=== PATIENT | male | born 1955 | race Caucasian/White ===

== ENCOUNTER → 2018-10-27 13:42 | Outpatient (CLI) | payer BC | END | disposition home or self-care (01) | LOC: D.MRI 13:42 | PROVIDERS: ATTEND Family Medicine | DX: L08.9 Local infection of the skin and subcutaneous tissue, unspecified (principal) ==

== ENCOUNTER 2018-11-06 05:16 | Day surgery (SDC) | payer BC ==
[~2018-11-06] VITALS: Ht 182.9 cm; Wt 86.6 kg
[~2018-11-06 05:16] MED LIST: GLIMEPIRIDE4 MG PO; LEVEMIR IN100 UNITS/ SC; METFORMIN HCL500 M1 PO; ZOCOR20 MG PO
[2018-11-06 05:42] LABS: BASOPHILS 0.7 % (0-2); EOSINOPHILS 4.9 % (0-7); HEMATOCRIT 47.9 % (42.0-54.0); HEMOGLOBIN 16.8 g/dL (13.5-17.5); IMMATURE GRANULOCYTES 0.2 % (0-5); LYMPHOCYTES 42.8 % (15-50); MCH 30.7 pg (26.0-34.0); MCHC 35.1 g/dL (31.0-37.0); MCV 87.4 fL (80.0-100.0); MEAN PLATELET VOLUME 9.3 fL (7.4-10.4); MONOCYTES 7.8 % (2-11); NEUTROPHILS 43.6 % (40-80); PLATELET COUNT 205 10x3/uL (130-400); RBC 5.48 10x6/uL (4.20-6.10); RDW 13.6 % (11.5-14.5); WBC 5.8 10x3/uL (4.8-10.8)
[2018-11-06 06:00] LABS: ANION GAP 11.9 mmol/L (8-16); CALCIUM 9.6 mg/dL (8.5-10.1); CARBON DIOXIDE 29.5 mmol/L (21.0-32.0); CREATININE - SERUM 1.2 mg/dL (0.6-1.3); POTASSIUM - SERUM 4.4 mmol/L (3.5-5.1)
[2018-11-06] MEDS ORDERED: BAYER CHEWABLE81 MG PO (06:36)
[2018-11-06 06:48] VITALS: BP 126/67; Ht 182.9 cm; Wt 86.6 kg
[2018-11-06 06:54] LABS: APPEARANCE CLEAR (CLEAR); BILIRUBIN NEGATIVE (NEGATIVE); COLOR YELLOW (YELLOW); GLUCOSE NEGATIVE (NEGATIVE); KETONE NEGATIVE (NEGATIVE); NITRITE NEGATIVE (NEGATIVE); PROTEIN NEGATIVE (NEGATIVE); UROBILINOGEN NORMAL (NORMAL)
[2018-11-06] MEDS ORDERED: HYDROCODON-ACE1 EAC7 PO (08:05)
--- NOTE | 2018-11-06 08:21 | NUR ---
0810 SMALL AMOUNT OF BRIGHT RED BLOOD ON KERLEX. AREA MARKED FOR OBSERVATION.
--- NOTE | 2018-11-06 08:50 | NUR ---
0840 MINIMAL BLOOD ON BANDAGE. GUAZE AND TAPE GIVEN TO PATIENT IN CASE OF FURTHER BLEEDING. IV DC'D. NO BLEEDING AT SITE. BANDAID APPLIED.
--- NOTE | 2018-11-06 09:30 | OP ---
PATIENT NAME: VELIA RING MEDICAL RECORD: [id number] :57 LOCATION:[facility] ADMISSION DATE: SURGEON: KHUSHI PRETTY DO DATE OF OPERATION: 11/06/2018 PROCEDURE PERFORMED: Left great toe distal phalanx bone biopsy. PREOPERATIVE DIAGNOSIS: Left great toe pain, chronic. POSTOPERATIVE DIAGNOSIS: Left great toe pain, chronic. INDICATIONS: Mr. Ring is a 63-year-old male who has had this left great toe pain for about a year he said now. He has had his left great toenail removed twice and his left great toe turns to colors blue and black and then swells and goes back down. He says it has been going on approximately a year. Removing the nail does help relieve the pain, but it keeps coming back. He has been on several rounds of antibiotics as well, which did not help. Recently, he had a discharge come out at the end of his toe, a bloody discharge, it was not purulent and since then the pain has improved as well as the swelling, but he said that he is worried that something may be else going on. He had an MRI done, which did show some increased uptake in the distal phalanx of that toe and he wanted something done to figure out what was going on. He spoke to my nurse practitioner and I communicated through him. We tried bone biopsy to see if there is a possible osteomyelitis or may be a glomus tumor, we were unsure what it is, but we will get a bone biopsy and figure out what was going on. He was okay with that. He is aware of the risks and benefits including infection, bleeding, damage to nerve or vessels and need for further surgery once we identify what the problem is. SURGEON: Khushi Pretty DO DESCRIPTION OF PROCEDURE: The patient was taken to the operative suite, laid in the supine position. The left foot was prepped and draped in sterile fashion. The patient was given TIVA and then a toe block was done on the left great toe, digital block. He was given 2 grams of Ancef. A 15 blade scalpel was used at the distal tip of the great toe of the left foot with 15 blade and a hemostat was used to spread down to the bone. The Jamshidi needle was used to grab a biopsy of the bone at distal phalanx, right under the nail. This would be where a glomus tumor be located. This was then removed and the bone was put in a specimen cup. Once that was completed, toe was cleaned and the incision was closed with 4-0 Monocryl in a horizontal mattress fashion. An Adaptic, 4 x 4s, Kerlix, and Coban was lightly wrapped around it and the foot. The patient was then awakened and taken to recovery in stable condition. Blood loss was minimal. COMPLICATIONS: None. SPECIMENS: The bone was sent to pathology. TRANSINT:[id number] Voice Confirmation ID: [id number] DOCUMENT ID: [id number] OPERATIVE REPORT [id number] VELIA RING MICHAEL D, DO at 0930 CC: [id number] DICTATION DATE: 11/06/18 08 DAY CARE SUPERVISOR: 11/06/18 [id number] [facility] 11/06/18 [id number] [place] [id number]
== END 2018-11-06 08:52 | disposition home or self-care (01) ==
LOC: D.OPS 05:16 → D.PAN 07:30 → D.OPS 07:30
PROVIDERS: Anesthesiology; ATTEND Orthopaedic Surgery
DX: G89.29 Other chronic pain (principal); M79.675 Pain in left toe(s); Z01.812 Encounter for preprocedural laboratory examination